=== PATIENT | male | born 1945 | race Caucasian/White ===

== ENCOUNTER 2017-05-27 03:52 | Emergency (ER) | payer OTHER ==
[2017-05-27 04:00] VITALS: RESP 20; O2SAT 94
[2017-05-27 05:50] VITALS: BP 142/72; PULSE 74; TEMP 98.1
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
== END 2017-05-27 05:30 | disposition home or self-care (01) ==
LOC: EDUNIT#
DX: R05 Cough (principal); F17.200 Nicotine dependence, unspecified, uncomplicated; Z59.0 Homelessness

== ENCOUNTER 2017-05-29 12:09 | Emergency (ER) | payer OTHER ==
[~2017-05-29 12:09] MED LIST: CLINDAMYCIN 150 MG CAP PO SCH
[2017-05-29 12:16] VITALS: BP 143/88; PULSE 81; RESP 14; TEMP 97.5; O2SAT 95
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
== END 2017-05-29 14:23 | disposition home or self-care (01) ==
LOC: EDUNIT#
DX: L03.116 Cellulitis of left lower limb (principal); F17.200 Nicotine dependence, unspecified, uncomplicated

== ENCOUNTER 2017-06-30 03:12 | Emergency (ER) | payer OTHER ==
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
[2017-06-30 03:21] VITALS: PULSE 74; RESP 16; TEMP 97.9
[2017-06-30 05:42] VITALS: BP 134/74; O2SAT 96
== END 2017-06-30 05:41 | disposition home or self-care (01) ==
LOC: EDUNIT#
DX: F10.921 Alcohol use, unspecified with intoxication delirium (principal); F17.200 Nicotine dependence, unspecified, uncomplicated; W18.39XA Other fall on same level, initial encounter; Y99.8 Other external cause status; Y93.89 Activity, other specified

== ENCOUNTER 2017-09-22 12:08 | Inpatient (IN) | payer OTHER ==
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
[2017-09-22 13:33] LABS: PLATELET COUNT 187 10^3/uL (150-400)
[2017-09-22] MEDS ORDERED: MAGNESIUM HYDROXIDE 30 ML UDCUP PO PRN (22:19)
[2017-09-22] MEDS ORDERED: NICOTINE POLACRILEX 2 MG GUM B PRN (22:19)
[2017-09-22] MEDS ORDERED: MAG HYDROX/AL HYDROX/SIMETH 30 ML UDCUP PO PRN (22:19)
[2017-09-22] MEDS ORDERED: LORazepam 1 MG TAB PO ONE (22:30)
[2017-09-22] MEDS ORDERED: traMADol 50 MG TAB PO ONE (22:30)
[2017-09-22] MEDS ORDERED: OLANZapine 5 MG TAB PO ONE (22:30)
[2017-09-23] MEDS: OLANZapine 5 MG TAB PO PRN (09:17)
[2017-09-23] MEDS: LORazepam 0.5 MG TAB PO PRN ×2 (09:17→16:50)
[2017-09-23] MEDS: ACETAMINOPHEN 325 MG TAB PO PRN (09:17)
[2017-09-23] MEDS ORDERED: traMADol 50 MG TAB PO PRN (10:52)
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
[2017-09-23] MEDS: traMADol 50 MG TAB PO PRN (16:49)
[2017-09-24] MEDS: traMADol 50 MG TAB PO PRN ×3 (00:32→18:15)
[2017-09-24] MEDS: LORazepam 0.5 MG TAB PO PRN ×2 (00:32→09:03)
[2017-09-24] MEDS: OLANZapine 5 MG TAB PO PRN (02:35)
[2017-09-24] MEDS: ACETAMINOPHEN 325 MG TAB PO PRN ×2 (02:36→09:03)
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
[2017-09-25] MEDS: traMADol 50 MG TAB PO PRN ×3 (01:37→16:40)
[2017-09-25] MEDS: LORazepam 0.5 MG TAB PO PRN (01:37)
[2017-09-25] MEDS: ACETAMINOPHEN 325 MG TAB PO PRN ×2 (08:01→16:40)
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
[2017-09-25 18:32] VITALS: TEMP 98.9
[2017-09-26] MEDS: traMADol 50 MG TAB PO PRN ×3 (00:07→11:40)
[2017-09-26] MEDS: LORazepam 0.5 MG TAB PO PRN ×2 (00:07→06:38)
[2017-09-26] MEDS: ACETAMINOPHEN 325 MG TAB PO PRN ×2 (02:47→11:39)
[2017-09-26 05:03] VITALS: BP 132/75; PULSE 97; RESP 15; O2SAT 95
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
== END 2017-09-26 14:15 | disposition home or self-care (01) | DRG 948 ==
LOC: BBEH 20:50
PROVIDERS: ADMIT Psychiatry & Neurology Behavioral Neurology & Neuropsychiatry; ATTEND Psychiatry & Neurology Psychiatry
DX: R41.0 Disorientation, unspecified (principal); F12.90 Cannabis use, unspecified, uncomplicated; F17.210 Nicotine dependence, cigarettes, uncomplicated; Z72.89 Other problems related to lifestyle; Z59.0 Homelessness; L03.116 Cellulitis of left lower limb; G89.29 Other chronic pain; D64.9 Anemia, unspecified
CPT/HCPCS: 80305; G0480

== ENCOUNTER 2017-09-27 23:16 | Emergency (ER) | payer OTHER ==
[2017-09-27] MEDS ORDERED: LORazepam 2 MG/ML INJ ONE (23:25)
[2017-09-27] MEDS ORDERED: LORazepam 2 MG/ML INJ IM ONE (23:37)
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
[2017-09-28] MEDS ORDERED: ZIPRASIDONE MESYLATE 20 MG VIAL IM ONE ×2 (00:02→00:13)
[2017-09-28 00:34] VITALS: RESP 20
[2017-09-28 02:17] VITALS: BP 127/74; PULSE 99; O2SAT 95
== END 2017-09-28 09:41 | disposition home or self-care (01) ==
LOC: EDUNIT#
DX: F10.921 Alcohol use, unspecified with intoxication delirium (principal); F91.9 Conduct disorder, unspecified; F17.200 Nicotine dependence, unspecified, uncomplicated
CPT/HCPCS: 96372; 99284; J2060; J3486

== ENCOUNTER 2017-10-01 01:58 | Emergency (ER) | payer OTHER ==
[2017-10-01] MEDS ORDERED: IBUPROFEN 800 MG TAB PO ONE (02:06)
[2017-10-01] MEDS ORDERED: CEPHALEXIN 500 MG CAP PO ONE (02:06)
[2017-10-01] MEDS ORDERED: CEPHALEXIN 500MG PREPACK#4 BTL TAKEHOME ONE (02:06)
[2017-10-01 02:08] VITALS: BP 140/89; PULSE 85; RESP 20; TEMP 98.2; O2SAT 95
--- NOTE | 2017-10-01 02:09 | EDPHY ---
H & P HPI/ROS: HPI CHIEF COMPLAINT: Alcohol Intoxication , possible cellulitis HISTORY OF PRESENT ILLNESS: This is a very pleasant 71-year-old male, homeless , presents emergency room by EMS from [facility] for alcohol intoxication. Additionally he complains of bilateral lower extremity redness which is chronic. He thinks he may have an active cellulitis infection. He denies any fever. Denies significant pain. Denies chest pain or shortness of breath. He states he has had multiple beers this evening. Additionally patient had a left orbital laceration repaired at some point and his sutures are ready to come out. States that been there 5-7 days. The wound appears clean, dry and intact. He arrives with stable vital signs. Smells of alcohol. Past Medical History: Alcoholism, intermittent lower extremity bilateral cellulitis, chronic lower extremity edema, chronic extremity cellulitis Past Surgical History: Denies surgical history Social History: Daily alcoholism. Homeless. Family History: Noncontributory ROS REVIEW OF SYSTEMS: A comprehensive 10 point review of systems is otherwise negative aside from elements mentioned in the history of present illness. Exam Constitutional Intoxicated, triage nursing summary reviewed, vital signs reviewed, Sleepy, smells of alcohol Eyes normal conjunctivae and sclera, horizontal beating nystagmus consistent acute alcohol intoxication, otherwise pupils equal and react to light HENT face, left eyebrow sutures in place that are clean, dry and intact, well- healed laceration and sutures that need to be removed normal inspection, atraumatic, moist mucus membranes, no epistaxis, neck supple/ no meningismus, no raccoon eyes. Respiratory clear to auscultation bilaterally, normal breath sounds, no respiratory distress, no wheezing. Cardiovascular rate normal, regular rhythm, no murmur, no edema, distal pulses normal. Gastrointestinal soft, non-tender, no rebound, no guarding, normal bowel sounds, no distension, no pulsatile mass. Genitourinary no CVA tenderness. Musculoskeletal no midline vertebral tenderness, full range of motion, no calf swelling, no tenderness of extremities, no meningismus, good pulses, neurovascularly intact. Skin bilateral lower extremity faint pinkness, I do not appreciate significant erythema or signs of significant infection, warm, & dry, no rash, skin atraumatic. Neurologic sleepy, intoxicated with alcohol,, alert and oriented x 3, AAOx3, moves all 4 extremities equally, motor intact, sensory intact, CN II-XII intact , , normal vision, normal speech. Psychiatric normal mood/affect. Heme/Lymph/Immune no lymphadenopathy. Differential Diagnosis: Includes but is not limited to in a particular order acute alcohol intoxication, alcohol abuse, dehydration, electrolyte abnormality , nausea vomiting from acute alcohol intoxication Medical Decision Making: Plan for this patient breath alcohol, remove sutures of left eyebrow, start Keflex for bilateral lower extremity very very little erythema. Ibuprofen for pain control. Keflex p. O. Dose here provided emergency room Keflex take-home pack. Prescription for keflex. Recommend refraining from drinking alcohol. Source: Patient, EMS, Old records Exam Limitations: Intoxication - Medical/Surgical History Hx Asthma: No Hx Chronic Respiratory Disease: No Hx Diabetes: No Hx Cardiac Disease: No Hx Renal Disease: No Hx Cirrhosis: No Hx Alcoholism: No Hx HIV/AIDS: No Hx Splenectomy or Spleen Trauma: No Other PMH: cellulitis - Social History Smoking Status: Light smoker Allergies/Adverse Reactions: No Known Allergies Allergy (Unverified 10/01/17 02:06) Home Medications: Medication Instructions Recorded traMADol [Ultram 50 mg (*)] 50 mg PO Q4-6PRN PRN #4 tab 09/26/17 Cephalexin [Keflex] 500 mg PO Q6H #28 cap 10/01/17 Departure - Departure Disposition: Home, Routine, Self-Care Clinical Impression: Visit for suture removal Alcohol intoxication Qualifiers: Complication of substance-induced condition: uncomplicated Qualified Code(s): F10.920 - Alcohol use, unspecified with intoxication, uncomplicated Cellulitis Qualifiers: Site of cellulitis: extremity Site of cellulitis of extremity: lower extremity Laterality: unspecified laterality Qualified Code(s): L03.119 - Cellulitis of unspecified part of limb Condition: Good Instructions: Alcohol Intoxication (ED), Stitches Removal (ED), Cellulitis (ED) Referrals: Patient,NotPresent [Primary Care Provider] - As per Instructions Prescriptions: Cephalexin [Keflex] 500 mg PO Q6H #28 cap
== END 2017-10-01 02:42 | disposition home or self-care (01) ==
LOC: EDUNIT#
DX: F10.920 Alcohol use, unspecified with intoxication, uncomplicated (principal); L03.119 Cellulitis of unspecified part of limb; F17.200 Nicotine dependence, unspecified, uncomplicated; Z48.02 Encounter for removal of sutures